=== PATIENT | male | born 1935 | race Caucasian/White ===

== ENCOUNTER → 2020-02-16 | Outpatient (CLI) | payer MEDICARE, OTHER ==
[~2020-02-16] MED LIST: AMLO2.5T5 PO; ASPI81TA45 PO; ATEN25TA PO; CHOL10003 PO; CYAN1TAB29 PO; FAMO-79 PO; GLUC500T11 PO; HYDR-3240 PO; HYDR-3241 PO; HYDR25TA6 PO; LORA10TA75 PO; METF500T17 PO; MILK500C PO; OMEG100023 PO; OMEP-110 PO; POLY17PO5 PO; PRAV20TA2 PO; RIVA20TA PO; SIMV10TA18 PO; SPIR25TA5 PO; SPIR50TA4 PO; SUCR1TAB33 PO; magnesium PO; prostate PO
[2020-02-16 16:58] LABS: BASOPHILS % (AUTO) 1 % (0-1); EOSINOPHILS % (AUTO) 3 % (1-7); LYMPHOCYTES % (AUTO) 25 % (22-44); MEAN CORPUSCULAR HGB CONC 33.4 g/dL (33.2-36.2); MEAN PLATELET VOLUME 9.3 fL (7.4-10.4); MONOCYTES % (AUTO) 11 % (2-9); NEUTROPHILS % (AUTO) 61 % (42-75); PLATELET COUNT 196 x10^3/uL (130-400); RED BLOOD COUNT 4.85 x10^6/uL (4.38-5.82); RED CELL DISTRIBUTION WIDTH 13.7 % (9.4-14.8)
[2020-02-16 16:59] LABS: MD NO
[2020-02-16 17:02] LABS: INTERNATIONAL NORMALIZED RATIO 1.06 (0.93-1.1); PROTHROMBIN TIME 10.9 Seconds (9.6-11.5)
[2020-02-16 17:05] LABS: ALANINE AMINOTRANSFERASE 23 U/L (12-78); ALBUMIN 3.6 g/dL (3.4-5.0); ANION GAP 6 mmol/L (5-15); CALCIUM 9.6 mg/dL (8.5-10.1); CHLORIDE 105 mmol/L (98-107); CREATININE 1.23 mg/dL (0.7-1.3)
[2020-02-16 17:08] LABS: ALKALINE PHOSPHATASE 44 U/L (45-117); BILIRUBIN,TOTAL 0.6 mg/dL (0.2-1.0); TOTAL PROTEIN 7.8 g/dL (6.4-8.2)
[2020-02-16 17:36] LABS: MICROSCOPIC AUTO
== END | disposition home or self-care (01) ==
LOC: STAR 15:48
PROVIDERS: ATTEND Neurological Surgery
DX: Z01.818 Encounter for other preprocedural examination (principal); Z01.812 Encounter for preprocedural laboratory examination; Z01.811 Encounter for preprocedural respiratory examination; Z01.810 Encounter for preprocedural cardiovascular examination; M48.061 Spinal stenosis, lumbar region without neurogenic claudication; M47.896 Other spondylosis, lumbar region; M54.16 Radiculopathy, lumbar region; R82.90 Unspecified abnormal findings in urine; R79.1 Abnormal coagulation profile; R94.31 Abnormal electrocardiogram [ECG] [EKG]; M48.14 Ankylosing hyperostosis [Forestier], thoracic region; I48.91 Unspecified atrial fibrillation; I44.7 Left bundle-branch block, unspecified
CPT/HCPCS: 36415; 71046; 80053; 81001; 85025; 85610; 85730; 93005

== ENCOUNTER → 2020-02-27 | Outpatient (CLI) | payer OTHER | END | disposition home or self-care (01) | LOC: STAR 13:48 | PROVIDERS: ATTEND Anesthesiology | DX: Z01.812 Encounter for preprocedural laboratory examination (principal); Z20.828 Contact with and (suspected) exposure to other viral communicable diseases | CPT/HCPCS: 36415; 87635 ==

== ENCOUNTER 2020-03-02 09:16 | Inpatient (IN) | payer MEDICARE, OTHER ==
[~2020-03-02] VITALS: Ht 177.8 cm; Wt 113.1 kg
[~2020-03-02 09:16] MED LIST changes: +BACITRACIN 50,000 UNIT ONE; +BUPIVACAINE 0.25% ONE; +BUPIVACAINE/PF 0.5% ONE; +EPINEPHRINE 1 MG/ML, 1ML ONE; +VANCOMYCIN 1,000 MG ONE
[2020-03-02] MEDS ORDERED: CHLORHEXIDINE 15 ML UDC MM ONE (10:00)
[2020-03-02] MEDS ORDERED: LACTATED RINGERS 1,000 ML IV SCH (10:00)
[2020-03-02] MEDS ORDERED: MIDAZOLAM 1 MG/ML, 2ML ONE (12:03)
[2020-03-02] MEDS ORDERED: FENTANYL PF 250 MCG/5ML ONE (12:04)
[2020-03-02] MEDS ORDERED: SUCCINYLCHOLINE 20 MG/ML, 10ML ONE (12:08)
[2020-03-02] MEDS ORDERED: PROPOFOL 10 MG/ML, 20ML ONE (12:08)
[2020-03-02] MEDS ORDERED: CEFAZOLIN 1,000 MG ONE (12:08)
[2020-03-02] MEDS ORDERED: ROCURONIUM 10 MG/ML,10ML ONE (12:08)
[2020-03-02] MEDS ORDERED: ONDANSETRON 2MG/ML, 2ML ONE (12:08)
[2020-03-02] MEDS ORDERED: FENTANYL PF 100 MCG/2ML ONE (13:20)
[2020-03-02] MEDS ORDERED: FENTANYL PF 100 MCG/2ML EPIDPUSH ONE (13:22)
[2020-03-02] MEDS ORDERED: BUPIVACAINE/PF 0.25% EPIDPUSH ONE (13:22)
[2020-03-02] MEDS ORDERED: MAGNESIUM HYDROXIDE 8%, 30ML UDC PO PRN (14:00)
[2020-03-02] MEDS ORDERED: KETOROLAC 30 MG/1 ML IV PRN (14:00)
[2020-03-02] MEDS ORDERED: METOCLOPRAMIDE 5 MG/ML, 2ML IV PRN (14:00)
[2020-03-02] MEDS ORDERED: OXYcodone 5 MG/5 ML ORAL.SOL UDC PO PRN (14:00)
[2020-03-02] MEDS ORDERED: ALBUTEROL SULFATE 2.5 MG/3 ML NPPB PRN (14:00)
[2020-03-02] MEDS ORDERED: morphine SULFATE 10 MG/ML, 1ML IVPush PRN (14:00)
[2020-03-02] MEDS ORDERED: hydrALAzine 20 MG/ML, 1ML IV PRN (14:00)
[2020-03-02] MEDS ORDERED: HYDROmorphone 1 MG/ML, 1ML INJ IV PRN (14:00)
[2020-03-02] MEDS ORDERED: DIAZEPAM 5 MG/ML, 2ML IV PRN ×2 (14:00)
[2020-03-02] MEDS ORDERED: LABETALOL 5MG/ML, 20ML IV PRN (14:00)
[2020-03-02] MEDS ORDERED: OXYcodone/APAP 5/325MG TABLET PO PRN (14:00)
[2020-03-02] MEDS ORDERED: MEPERIDINE/PF 25MG/0.5ML IVPush PRN (14:00)
[2020-03-02] MEDS ORDERED: FENTANYL PF 100 MCG/2ML IV PRN (14:00)
[2020-03-02] MEDS ORDERED: INSULIN REGULAR 100 UNITS/ML, 3ML VIAL SQ-INSULIN PRN (14:00)
[2020-03-02] MEDS ORDERED: PHARMACY MAY ADJ FOR RENAL FX MC PRN (14:00)
[2020-03-02] MEDS ORDERED: PROMETHAZINE 25 MG/ML, 1ML IV PRN (14:00)
[2020-03-02] MEDS ORDERED: ONDANSETRON 2MG/ML, 2ML IVPush PRN ×2 (14:00)
[2020-03-02] MEDS ORDERED: HYDROcodone/APAP 10/325 MG TABLET PO PRN (14:00)
[2020-03-02] MEDS: NS + 20MEQ KCL 1,000 ML IV SCH (16:18)
[2020-03-02 20:43] VITALS: BP 140/81
[2020-03-02] MEDS: HYDROcodone/APAP 5/325 TABLET PO PRN (20:49)
[2020-03-02] MEDS: CEFAZOLIN PMX 1GM/50ML 50 ML IVPB SCH (20:49)
[2020-03-02] MEDS: PRAVASTATIN 20 MG TABLET PO SCH (20:49)
[2020-03-02] MEDS: SODIUM CHLORIDE FLUSH 10ML SYR IVF SCH (21:00)
[2020-03-02] MEDS: metFORMIN 500 MG TABLET PO SCH (22:11)
[2020-03-03] MEDS: METHOCARBAMOL 750 MG TABLET PO PRN ×2 (00:18→22:11)
[2020-03-03 00:21] VITALS: BP 124/78
[2020-03-03] MEDS: HYDROcodone/APAP 5/325 TABLET PO PRN ×4 (00:50→20:10)
[2020-03-03 03:54] VITALS: BP 122/69
[2020-03-03] MEDS: CEFAZOLIN PMX 1GM/50ML 50 ML IVPB SCH (05:06)
[2020-03-03 08:10] VITALS: BP 121/71
[2020-03-03] MEDS: FAMOTIDINE 40 MG TABLET PO SCH (08:20)
[2020-03-03] MEDS: HYDROCHLOROTHIAZIDE 25 MG TABLET PO SCH (08:20)
[2020-03-03] MEDS: LORATADINE 10 MG TABLET PO SCH (08:20)
[2020-03-03] MEDS: MAGNESIUM OXIDE 400 MG TABLET PO SCH (08:21)
[2020-03-03] MEDS: metFORMIN 500 MG TABLET PO SCH ×2 (08:21→17:30)
[2020-03-03] MEDS: FOLIC ACID 1 MG TABLET PO SCH (08:21)
[2020-03-03] MEDS: ATENOLOL 25 MG TABLET PO SCH (08:21)
[2020-03-03] MEDS: SODIUM CHLORIDE FLUSH 10ML SYR IVF SCH ×2 (08:22→20:13)
[2020-03-03] MEDS: AMLODIPINE 2.5 MG TABLET PO SCH (08:22)
[2020-03-03] MEDS: CYANOCOBALOMIN 100MCG TABLET PO SCH (08:23)
[2020-03-03] MEDS: CHOLECALCIFEROL 1,000 UNIT TABLET PO SCH (08:24)
[2020-03-03] MEDS: NS + 20MEQ KCL 1,000 ML IV SCH (11:44)
[2020-03-03 12:45] VITALS: BP 127/69
[2020-03-03] MEDS: SENNA/DOCUSATE TABLET PO PRN (14:55)
[2020-03-03 19:14] VITALS: BP 134/80
[2020-03-03] MEDS: PRAVASTATIN 20 MG TABLET PO SCH (20:11)
[2020-03-04] MEDS: HYDROcodone/APAP 5/325 TABLET PO PRN ×5 (01:24→20:16)
[2020-03-04 01:59] VITALS: BP 113/49
[2020-03-04] MEDS: METHOCARBAMOL 750 MG TABLET PO PRN ×2 (06:01→20:16)
[2020-03-04 07:45] VITALS: BP 127/71
[2020-03-04] MEDS: MAGNESIUM OXIDE 400 MG TABLET PO SCH (08:32)
[2020-03-04] MEDS: HYDROCHLOROTHIAZIDE 25 MG TABLET PO SCH (08:33)
[2020-03-04] MEDS: ATENOLOL 25 MG TABLET PO SCH (08:33)
[2020-03-04] MEDS: CYANOCOBALOMIN 100MCG TABLET PO SCH (08:33)
[2020-03-04] MEDS: FOLIC ACID 1 MG TABLET PO SCH (08:34)
[2020-03-04] MEDS: AMLODIPINE 2.5 MG TABLET PO SCH (08:34)
[2020-03-04] MEDS: FAMOTIDINE 40 MG TABLET PO SCH (08:34)
[2020-03-04] MEDS: CHOLECALCIFEROL 1,000 UNIT TABLET PO SCH (08:34)
[2020-03-04] MEDS: metFORMIN 500 MG TABLET PO SCH ×2 (08:35→17:26)
[2020-03-04] MEDS: SODIUM CHLORIDE FLUSH 10ML SYR IVF SCH ×2 (08:35→20:17)
[2020-03-04] MEDS: LORATADINE 10 MG TABLET PO SCH (08:38)
[2020-03-04] MEDS: SENNA/DOCUSATE TABLET PO PRN (08:39)
[2020-03-04] MEDS: NS + 20MEQ KCL 1,000 ML IV SCH (08:41)
[2020-03-04 12:29] VITALS: BP 133/78
[2020-03-04] MEDS ORDERED: BISACODYL 10 MG SUPP PR PRN (17:00)
[2020-03-04] MEDS: MAGNESIUM CITRATE 300ML ORAL SOL PO PRN ×2 (17:26→20:30)
[2020-03-04 18:48] VITALS: BP 130/62
[2020-03-04] MEDS: INSULIN REGULAR 100 UNITS/ML, 3ML VIAL SQ-INSULIN SCH (20:14)
[2020-03-04] MEDS: PRAVASTATIN 20 MG TABLET PO SCH (20:16)
[2020-03-05 00:23] VITALS: BP 138/84
[2020-03-05] MEDS: HYDROcodone/APAP 5/325 TABLET PO PRN ×2 (00:42→08:01)
[2020-03-05] MEDS: NS + 20MEQ KCL 1,000 ML IV SCH (04:00)
[2020-03-05] MEDS: INSULIN REGULAR 100 UNITS/ML, 3ML VIAL SQ-INSULIN SCH ×2 (07:00→11:51)
[2020-03-05 07:58] VITALS: BP 132/69
[2020-03-05] MEDS ORDERED: HYDR-3237 PO (08:01)
[2020-03-05] MEDS ORDERED: METH750T2 PO (08:01)
[2020-03-05] MEDS: HYDROCHLOROTHIAZIDE 25 MG TABLET PO SCH (08:01)
[2020-03-05] MEDS: CHOLECALCIFEROL 1,000 UNIT TABLET PO SCH (08:01)
[2020-03-05] MEDS: FOLIC ACID 1 MG TABLET PO SCH (08:01)
[2020-03-05] MEDS: AMLODIPINE 2.5 MG TABLET PO SCH (08:01)
[2020-03-05] MEDS: LORATADINE 10 MG TABLET PO SCH (08:02)
[2020-03-05] MEDS: CYANOCOBALOMIN 100MCG TABLET PO SCH (08:02)
[2020-03-05] MEDS: FAMOTIDINE 40 MG TABLET PO SCH (08:02)
[2020-03-05] MEDS: MAGNESIUM OXIDE 400 MG TABLET PO SCH (08:03)
[2020-03-05] MEDS: metFORMIN 500 MG TABLET PO SCH (08:03)
[2020-03-05] MEDS: ATENOLOL 25 MG TABLET PO SCH (08:07)
[2020-03-05] MEDS: SODIUM CHLORIDE FLUSH 10ML SYR IVF SCH (08:08)
[2020-03-05] MEDS ORDERED: CEPH-368 PO (11:13)
[2020-03-05 12:50] VITALS: BP 138/68
== END 2020-03-05 14:16 | disposition home health service (06) | DRG 520 ==
LOC: ORIP 09:16 → 4NE 15:08 → DCLOUNGE 03-05 13:02
PROVIDERS: ADMIT Neurological Surgery; ATTEND Neurological Surgery
PROC: 0SB20ZZ Excision of Lumbar Vertebral Disc, Open Approach (ICD-10-PCS; 2020-03-02)
PROC: 4A11X4G Monitoring of Peripheral Nervous Electrical Activity, Intraoperative, External Approach (ICD-10-PCS; 2020-03-02)
PROC: 01NB0ZZ Release Lumbar Nerve, Open Approach (ICD-10-PCS; principal; 2020-03-02 12:30)
DX: M51.16 Intervertebral disc disorders with radiculopathy, lumbar region (principal); M48.062 Spinal stenosis, lumbar region with neurogenic claudication; M47.26 Other spondylosis with radiculopathy, lumbar region
CPT/HCPCS: 82962; 95938; 95941; G0378; J0171; J0690; J2250; J2405; J2704; J3010; J3370; J3480; J0330; J7120